=== PATIENT | female | born 1980 ===

== ENCOUNTER 2017-03-15 20:04 | Emergency (ER) | payer MEDICAID, SELFPAY ==
[2017-03-15 21:19] LABS: SQUAMOUS EPITHIAL 8 /hpf (0-5); URINE BACTERIA RARE (<OCC); URINE BILIRUBIN NEGATIVE (NEGATIVE); URINE BLOOD 1+ (NEGATIVE); URINE CLARITY Hazy (Clear); URINE COLOR Yellow (YELLOW); URINE GLUCOSE (UA) NORMAL (Normal); URINE LEUKOCYTE ESTERASE TRACE Leu/uL (Negative); URINE NITRATE NEGATIVE (NEGATIVE); URINE PROTEIN NEGATIVE (NEGATIVE); URINE UROBILINOGEN NORMAL mg/dL (0.2-1.0)
--- NOTE | 2017-03-16 12:58 | OBDCSUM ---
Datetime: 03/15/2017 21:21 Discharged to, Provider: Home Follow up at, Provider: monday Disch Instr Activity: Normal activity Disch Instr Diet: Regular Discharge Time: 03/15/2017 21:21 Follow up in weeks, Provider: clinic Disch Referrals: None Discharge Comment, Provider: plan dc home possible muscle spasm tylenol po labor given hot massage f/u in clinic Discharge Diagnosis Prov Other: 36weeks nst meuscle spasm
--- NOTE | 2017-03-16 12:58 | OBHP ---
Datetime: 03/15/2017 21:23 Admit Comment, IP Provider: pt feels better after tylenol ua neg no ctxs plan dc home possible muscle spasm tylenol po labor given hot massage f/u in clinic FHR - Baseline A Provider: 130 Contraction Comments Provider: none Vital Signs Provider: Reviewed; Within Normal Limits NICHD Variability Prov Fetus A: Moderate 6-25bpm NICHD Accel Fetus A IP Provider: [id number] FHR Category Provider Fetus A: Category I
--- NOTE | 2017-03-16 12:59 | OBHP ---
Datetime: 03/15/2017 20:31 IP Adm Impression: , intrauterine ; No Active Labor IP Chief Complaint Other: left back pain Admit Comment, IP Provider: at 36.5weeks came with c/o back pain started 3 days ago. pt never t ook any meds for that. today went to clinic and was told baby is breech thats why came. no ctxs, vb, lof,+fm.no dysuria. obhx 4 x pmh den med pnv all nkda psh ex lap cystectomy soch den ve closed a/p at 36=weeks with back pain r/o uti ua tylenol po cont raegan and efm cont close observation Pelvic Type - PN: Adequate Extremities - PN: Normal Abdomen - PN: Normal Back - PN: Normal Breast - PN: Not Done Lungs - PN: Normal Heart - PN: Normal Thyroid - PN: Not Done Neurologic - PN: Normal HEENT - PN: Normal General - PN: Normal FHR - Baseline A Provider: 120 Contraction Comments Provider: none Comments, ACOG Physical Exam: gravid,non tender ext no edema,no calf ten +left cva tendereness Vital Signs Provider: Reviewed; Within Normal Limits NICHD Variability Prov Fetus A: Moderate 6-25bpm NICHD Accel Fetus A IP Provider: [id number] FHR Category Provider Fetus A: Category I Dilatation, Provider: 0 Effacement, Provider: 0 Station, Provider: -3 Genitourinary Exam: Normal DTRs - PN: Normal
== END 2017-03-15 21:21 | disposition home or self-care (01) ==
LOC: C.EROB 20:04
DX: O26.893 Other specified pregnancy related conditions, third trimester (principal); M54.9 Dorsalgia, unspecified; Z3A.36 36 weeks gestation of pregnancy

== ENCOUNTER 2017-04-09 22:30 | Emergency (ER) | payer MEDICAID ==
[2017-04-09 22:40] VITALS: BMI 35.3
== END 2017-04-09 23:06 | disposition home or self-care (01) ==
LOC: C.EROB 22:30
DX: O47.1 False labor at or after 37 completed weeks of gestation (principal); Z3A.40 40 weeks gestation of pregnancy

== ENCOUNTER 2017-04-10 04:08 | Inpatient (IN) | payer MEDICAID ==
[2017-04-10 04:17] VITALS: BMI 33.0
[2017-04-12 01:23] VITALS: O2SAT 98
[2017-04-12 08:05] VITALS: BP 102/66; PULSE 58; RESP 18; TEMP 98.3
== END 2017-04-12 12:45 | disposition home or self-care (01) | DRG 373 ==
LOC: C.EROB 04:08 → C.4D 04:33 → C.4M 10:47
PROVIDERS: ADMIT Obstetrics & Gynecology; ATTEND Obstetrics & Gynecology
PROC: 10E0XZZ Delivery of Products of Conception, External Approach (ICD-10-PCS; principal; 2017-04-10)
PROC: 0HQ9XZZ Repair Perineum Skin, External Approach (ICD-10-PCS; 2017-04-10)
DX: O48.0 Post-term pregnancy (principal); O70.0 First degree perineal laceration during delivery; O90.81 Anemia of the puerperium; D64.9 Anemia, unspecified; O77.0 Labor and delivery complicated by meconium in amniotic fluid; O69.1XX0 Labor and delivery complicated by cord around neck, with compression, not applicable or unspecified; O09.523 Supervision of elderly multigravida, third trimester; Z3A.40 40 weeks gestation of pregnancy; Z37.0 Single live birth